=== PATIENT | male | born 1980 | race Caucasian/White ===

== ENCOUNTER 2020-10-20 05:33 | Emergency (ER) | payer OTHER, SELFPAY ==
[2020-10-20] VITALS (9 sets, daily range): BP systolic 114–125; BP diastolic 69–81; PULSE 78–101; RESP 16–20; TEMP 36.6; O2SAT 97–100; BMI 27.3
--- NOTE | 2020-10-20 05:40 | PC.NURSE ---
CALL PLACED TO RADIOLOGY RE: ORDERS. STATES THEY WILL BE DOWN IN A MINUTE.
--- NOTE | 2020-10-20 05:47 | XR_ITS ---
PROCEDURE: XR CHEST 2V CLINICAL HISTORY: LIMITED ROM TO RUE; RIGHT POSTERIOR BACK PAIN Pain, smoker COMPARISON: CR CXR1 CHEST-PORTABLE from 05/31/[address] THORACIC SPINE WO CON from 10/20/2020 FINDINGS: The cardiomediastinal silhouette and pulmonary vascularity are within normal limits. There is an azygos fissure is a normal variant. There is some patchy density in the right lung base suggesting an area of atelectasis or infiltrate. Increased soft tissue density is present in the paratracheal/paraspinal region in the upper mediastinal area. 6 mm noncalcified nodules noted overlying the T8 vertebral body. Chest CT may provide further evaluation. No acute bony abnormalities. IMPRESSION: Noncalcified nodule overlying the T8 vertebral body Increased soft tissue density overlying the upper mediastinum. Chest CT with contrast may provide further evaluation Dictated by: Gee Fraser MD 10/20/2020 06:47 Gee Fraser MD in [facility] 10/20/2020 06:47
--- NOTE | 2020-10-20 05:47 | CT_ITS ---
PROCEDURE: CT THORACIC SPINE WO CON CLINICAL HISTORY: BACK PAIN, LIMITED ROM TO RUE Right-sided back pain, pain between scapula COMPARISON: No exams were available for comparison TECHNIQUE: Axial images obtained with sagittal and coronal reformats. All CT scans at the facility use one or more dose reduction, viz: automated exposure control, ma/kV adjustment per patient size (including targeted exams where dose is matched to indication, i.e. head), or iterative reconstruction technique. FINDINGS: Erosive change is present involving the endplates at T2-T3 with disc space widening posteriorly and disc space narrowing anteriorly with fragmentation along the anterior superior aspect T3 and mild retrolisthesis of T2 approximately 3 mm. There is prominent increased soft tissue density in the paraspinal region at the T2-T3 level. These findings are consistent with spondylo discitis/osteomyelitis.. There are mild degenerative changes in the lower thoracic spine. No other bony erosive changes evident. Evaluation of the surrounding lung shows old granulomatous disease. There is an azygos fissure is a normal variant. Increased soft tissue density is present in the left apex medially. This is adjacent to the surrounding rind abnormal soft tissue density at the T2-T3 level and could be related to extension of inflammatory/infectious changes into the left apex. Cannot exclude the possibility of a long the mass at this region. Convalescent follow-up is suggested. This area measures approximately 1.8 by 2 cm. There are some atelectatic changes in the left apex. IMPRESSION: 1. Findings are compatible with spondylo discitis at T2-T3 as described above with phlegmonous changes of the surrounding paravertebral soft tissues 2. 2 cm opacity left lung apex medially adjacent to the phlegmonous changes and may be related to extension of the infection into the inflammatory/infectious changes in the left apex. Cannot exclude a sub adjacent lung nodule. Convalescent follow-up is suggested. This could also be due to an area of pneumonia Dictated by: Gee Fraser MD 10/20/2020 07:23 Gee Fraser MD in [facility] 10/20/2020 07:23
--- NOTE | 2020-10-20 05:47 | CT_ITS ---
PROCEDURE: CT CERVICAL SPINE WO CON CLINICAL INDICATION: BACK PAIN, LIMITED ROM TO RUE Neck pain COMPARISON: No exams were available for comparison TECHNIQUE: Axial images obtained with sagittal and coronal reformats. All CT scans at the facility use one or more dose reduction, viz: automated exposure control, ma/kV adjustment per patient size (including targeted exams where dose is matched to indication, i.e. head), or iterative reconstruction technique. Axial spiral CT scanning performed of the cervical spine beginning at the base of the skull and continuing to the upper T-spine. 3-D multiplanar reconstruction with 3-D manipulation of volumetric data set in image rendering was completed by the radiologist and/or technologist with the supervision of the radiologist on independent workstation. FINDINGS: There is normal alignment. No fracture or dislocation. C2-C3: Mild degenerative disc disease with mild left-sided foraminal narrowing from uncovertebral hypertrophy. C3-C4: Mild degenerative disc disease with mild left-sided foraminal narrowing from uncovertebral hypertrophy. C4-C5: Degenerative disc disease with endplate hypertrophic change and a small right paracentral disc osteophyte complex. C5-C6: Degenerative disc disease. There is a small left paravertebral disc osteophyte complex with left-sided foraminal narrowing from uncovertebral and endplate hypertrophic change. C6-C7: Degenerative disc disease with endplate spurring with bilateral foraminal narrowing and right lateral recess narrowing. C7-T1: Unremarkable. Some please see thoracic spine report for upper thoracic details. IMPRESSION: Multilevel cervical spondylosis as detailed above. Please see thoracic spine report for upper thoracic findings. Dictated by: Gee Fraser MD 10/20/2020 07:17 Gee Fraser MD in [facility] 10/20/2020 07:17
--- NOTE | 2020-10-20 05:59 | PC.NURSE ---
pt to ct
--- NOTE | 2020-10-20 06:03 | PC.NURSE ---
pt back to unit
--- NOTE | 2020-10-20 06:21 | PC.NURSE ---
call received from simone for md. davalos on phone at this time.
--- NOTE | 2020-10-20 06:31 | [facility].EDBACK ---
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 The time I documented below is in addition to time spent performing reported procedures but includes the following listed in this critical care notation. Medical Decision Making - Medical Records Medical records reviewed: Yes: I reviewed the patient's medical records. - [place] Inquiry Pt receiving controlled substance: No - Lab Data Lab results reviewed: Yes: I reviewed the patient's lab results. Result diagrams: 10/20/20 06:40 10/20/20 06:40 - Radiology Data #1 Image(s): Chest Image Reviewed: Yes I reviewed the patient's radiology image Preliminary Findings: Abnormal - CT Data CT Scan: C-Spine, T-Spine Time Received: 07:[address] Reviewed: Yes: I have viewed the radiologist's interpretation Preliminary Findings: Abnormal (see report ) <Aditya Long Tom - Last Filed: 10/20/20 08:06> - Lab Data Result diagrams: 10/20/20 06:40 10/20/20 06:40 - Reevaluation(s) Time: 09:02 <Tho Jimenez - Last Filed: 10/20/20 09:03> Vital Signs: 10/20/20 05:41 10/20/20 06:34 10/20/20 07:02 Temperature 97.8 F Temperature Source Temporal Artery Scan Pulse Rate [Right Brachial] 101 H 92 H 95 H Respiratory Rate 16 16 16 Blood Pressure [Right Arm] 118/69 125/78 125/71 Blood Pressure Mean [Right Arm] 85 93 89 Blood Pressure Source [Right Arm] Automatic Cuff Automatic Cuff Automatic Cuff Blood Pressure Position [Right Arm] Sitting Sitting Sitting 02 Sat by Pulse Oximetry 97 98 99 Oxygen Delivery Method Room Air Room Air Room Air 10/20/20 08:05 10/20/20 08:30 Temperature Temperature Source Pulse Rate [Right Brachial] 92 H 87 Respiratory Rate Blood Pressure [Right Arm] 116/75 119/80 Blood Pressure Mean [Right Arm] 88 93 Blood Pressure Source [Right Arm] Automatic Cuff Automatic Cuff Blood Pressure Position [Right Arm] Sitting Sitting 02 Sat by Pulse Oximetry 98 100 Oxygen Delivery Method Room Air Room Air - Lab Data Lab Results 10/20/20 06:40: WBC 12.1 H, RBC 4.83, Hgb 14.6, Hct 43.1, MCV 89.2, MCH 30.3, MCHC 34.0, RDW 13.6, Plt Count 356, MPV 8.3, Neut % (Auto) 74.1, Lymph % (Auto) 18.9, Shasta % (Auto) 5.4, Eos % (Auto) 1.1, Baso % (Auto) 0.5, Neut # (Auto) 9.0 H, Lymph # (Auto) 2.3, [place] # (Auto) 0.7, Eos # (Auto) 0.1, Baso # (Auto) 0.1, ESR 27 H 10/20/20 06:40: Sodium 136, Potassium 4.3, Chloride 100, Carbon Dioxide 29, Anion Gap 11.3, BUN 12, Creatinine 0.70, Estimated Creat Clear 162, Estimated GFR 125, Est GFR ( Amer) 151, Glucose 176 H, Calcium 9.3, Total Bilirubin 0.5, Direct Bilirubin 0.3, Conjugated Bilirubin 0.0, Indirect Bilirubin 0.2, Unconjugated Bilirubin 0.2, AST 46, ALT 68, Alkaline Phosphatase 102, C-Reactive Protein 42.6 H, Total Protein 8.1, Albumin 4.1 10/20/20 06:40: Lactate 1.1 10/20/20 06:40: Procalcitonin 0.101 Orders (Tests/Meds): ED MEDICATIONS Generic Name Dose Route Start Last Admin Trade Name Freq PRN Reason Stop Dose Admin Vancomycin HCl 1,500 mg/ 250 mls @ 125 mls/hr 10/20/20 07:45 10/20/20 07:53 Sodium Chloride IV 10/20/20 09:44 125 mls/hr ONCE ONE Administration Discontinued Medications Generic Name Dose Route Start Last Admin Trade Name Freq PRN Reason Stop Dose Admin Ceftriaxone Sodium 1 gm/ 50 mls @ 100 mls/hr
--- NOTE | 2020-10-20 06:51 | PC.NURSE ---
md speaking with patient. pt confesses he shoots up crushed up pills.
[2020-10-20 06:56] LABS: Basophils # 0.1 K/mm3 (0-0.2); Basophils % 0.5 % (0.1-2.0); Eosinophils # 0.1 K/mm3 (0.0-0.4); Eosinophils % 1.1 % (0.1-12.0); Hematocrit 43.1 % (42.0-52.0); Hemoglobin 14.6 g/dL (14.1-18.0); Lymphocytes # 2.3 K/mm3 (0.7-4.5); Lymphocytes % 18.9 % (10-50); Mean Corpuscular Hemoglobin 30.3 pg (27.0-31.2); Mean Corpuscular Volume 89.2 fl (80-94); Mean Platelet Volume 8.3 fl (7.4-10.4); Monocytes # 0.7 K/mm3 (0.1-1.0); Monocytes % 5.4 % (1.7-9.3); Neutrophils % 74.1 % (37.0-80.0); Platelet Count 356 K/mm3 (142-424); Red Blood Count 4.83 M/mm3 (4.60-6.20); Red Cell Distribution Width 13.6 % (11.5-17.5); White Blood Count 12.1 K/mm3 (4.8-10.8)
[2020-10-20 07:02] LABS: Alanine Aminotransferase 68 U/L (12-78); Albumin Level 4.1 g/dl (3.5-5.0); Alkaline Phosphatase 102 U/L (38-126); Anion Gap 11.3 mEq/L (5-15); Aspartate Amino Transferase 46 U/L (17-59); Bilirubin,Direct 0.3 mg/dl (0.0-0.4); Bilirubin,Indirect 0.2 mg/dL (0.0-0.9); Bilirubin,Total 0.5 mg/dl (0.2-1.3); Bilirubin,Unconjugated 0.2 mg/dL (0.0-1.1); Blood Urea Nitrogen 12 mg/dl (9-20); Calcium 9.3 mg/dl (8.4-10.2); Carbon Dioxide 29 mmol/L (22.0-30.0); Chloride 100 mmol/L (98-107); Creatinine Clearance Estimated 162 mL/min (50-200); Estimated Glomerular Filt Rate 125 ml/min (>60); GFR (African American) 151 ML/MIN (>60); Glucose 176 mg/dl (74-100); Potassium 4.3 mmoL/L (3.5-5.1); Sodium 136 mmol/L (136-145); Total Protein,Serum 8.1 g/dl (6.3-8.2)
[2020-10-20 07:03] LABS: Lactic Acid 1.1 mmol/L (0.7-2.1)
--- NOTE | 2020-10-20 07:06 | PC.NURSE ---
report given to rosemaryrn
[2020-10-20 07:07] LABS: C-Reactive Protein 42.6 mg/L (0-4)
[2020-10-20 07:18] LABS: Procalcitonin 0.101 ng/mL (0.0-2.0)
--- NOTE | 2020-10-20 07:22 | PC.NURSE ---
paged pharmacy for vanc dosing
--- NOTE | 2020-10-20 07:34 | PC.NURSE ---
Calling [facility] at this time
--- NOTE | 2020-10-20 07:39 | PC.NURSE ---
Spoke with Tejas about vanc. Advises he will bring the dose down.
[2020-10-20 07:42] LABS: Erythrocyte Sedimentation Rate 27 mm/hr (0-15)
--- NOTE | 2020-10-20 07:51 | CA_ITS ---
APPROVED REPORT EXAM: Comprehensive 2D, Doppler, and color-flow Echocardiogram Lap Regulator: Maryann Simpson RCS, RVS Ht: 5 ft 8 in Wt: 180lbs BSA: 1.95 BP: 125/71 mmHg Indications: IVDA, Abcess in epidural spacie of thoracic spine, atypica/ CP/back pain 2D Dimensions IVSd 0.75 cm M: 0.6-1.2 PWd 0.80 cm M: 0.6 - 1.2 LVDs 2.88 cm M: 2.5 - 4.0 RVID Base (AP4) 2.50 cm (M/F) 2.5-4.1 LVOT 1.82 cm (M/F) 1.5-2.5 M-Mode Dimensions LA Diam 3.30 cm (1.9-4.0) LVDd 4.35 cm (3.5-5.7) Ao Diam 2.92 cm (2.0-3.7) LVDs 2.63 cm (3.5-5.7) EF (Teich) 70.40% EPSs 0.19 cm FS 39.50% EDV (Teich) 85.40 mL ESV (Teich) 25.30 mL LV Diastology E Decel Time 297.00 (160-240 msec) E/A Ratio 1.57 MED E' 15.60 (< 7 cm/sec) MED A' 13.00 cm/s E'/MED E' Ratio 5.64 (>14) LAT E' 14.90 (<10 cm/sec) LAT A' 9.50 cm/s E/LAT E' Ratio 5.91 (>14) Aortic Valve AO Peak GR. 7.30 mmHg Mitral Valve MV A Velocity 56.00 (40-130 cm/s) E/A Ratio 1.57 MV Decel. Time 297.00 (160-240 ms) Tricuspid Valve TR P. Velocity 251.00 cm/s RAP Estimate 10.00 mmHg RVSP 35.20 mmHg Left Ventricle Left atrium is normal size, left ventricle is normal size, there is no concentric left ventricular hypertrophy, visually estimated ejection fraction 55% with no regional wall motion abnormality, diastolic parameters are within normal range. Right Ventricle Right atrium and right ventricle are normal size and contractility. Aortic Valve Aortic valve is minimally thickened and fibrosed. There is no aortic stenosis or aortic insufficiency. Mitral Valve Mitral valve is grossly normal, there is trace mitral regurgitation. Tricuspid Valve Tricuspid valve is grossly normal, there is trace tricuspid regurgitation. Calculated right ventricular systolic pressure 35 mmHg. Pulmonic Valve Pulmonic valve is poorly visualized. Great Vessels Aortic root is normal size. Pericardium No significant pericardial effusion noted Conclusion 1. Normal left ventricular size, preserved left ventricular systolic function, visually estimated ejection fraction 55% with no regional wall motion abnormality, diastolic parameters are within normal range. 2. Trace mitral and tricuspid regurgitation. Calculated right ventricular systolic pressure 35 mmHg. 3. No significant pericardial effusion noted. Electronically signed by : Binh Horn, 10/20/2020 10:49:17
--- NOTE | 2020-10-20 08:24 | PC.NURSE ---
Staff at bedside to perform echo.
--- NOTE | 2020-10-20 08:36 | PC.NURSE ---
speaking with DR. Chaparro
--- NOTE | 2020-10-20 09:02 | PC.NURSE ---
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 Pt accepted per Dr. Monahan
--- NOTE | 2020-10-20 09:15 | PC.NURSE ---
pt facesheet faxed to [facility].
--- NOTE | 2020-10-20 09:25 | PC.NURSE ---
pt started have a sudden onset of head itching redness to chest , vanc stopped and meds given for allergic reaction
[2020-10-20 09:29] LABS: Coronavirus 19 IgG Antibody Negative (Negative); Coronavirus 19 IgM Antibody Negative (Negative)
--- NOTE | 2020-10-20 09:34 | PC.NURSE ---
pt feeling much better , itching gone redness looking much better
--- NOTE | 2020-10-20 10:23 | PC.NURSE ---
report called to Tran Beaver RN at [facility] at this time
== END 2020-10-20 11:00 | disposition short-term general hospital (02) ==
PROVIDERS: Emergency Medicine; Emergency Provider Emergency Medicine
DX: M46.44 Discitis, unspecified, thoracic region (principal); G06.1 Intraspinal abscess and granuloma; Z01.84 Encounter for antibody response examination; F19.11 Other psychoactive substance abuse, in remission
CPT/HCPCS: 71046; 72125; 72128; 80048; 80076; 83605; 84145; 85025; 85651; 86140; 86328; 87040; 93306; 96365; 96375; 99284; J3370